=== PATIENT | female | born 1975 | race African-American/Black ===

== ENCOUNTER 2017-08-09 19:19 | Emergency (ER) | payer OTHER ==
[~2017-08-09] VITALS: Ht 162.6 cm; Wt 72.3 kg
[2017-08-09 19:30] VITALS: BP 135/87; TEMP 99.3
[2017-08-09 20:49] VITALS: PULSE 84
== END 2017-08-09 20:49 | disposition home or self-care (01) ==
LOC: COL.ER 19:19
DX: J02.9 Acute pharyngitis, unspecified (principal)